=== PATIENT | female | born 1955 | race Caucasian/White ===

== ENCOUNTER 2018-01-13 09:29 | Outpatient (CLI) | payer BC | END 2018-01-13 09:30 | disposition home or self-care (01) | LOC: BICMAMMO 09:29 | PROVIDERS: ATTEND Family Medicine | DX: Z13.820 Encounter for screening for osteoporosis (principal) | CPT/HCPCS: 77080 ==

== ENCOUNTER 2018-04-07 21:40 | Emergency (ER) | payer BC ==
[2018-04-07 22:17] LABS: #Lymphocytes 1.7 thou/uL (1.20-3.40); #Monocytes 0.6 thou/uL (0.11-0.59); #Neutrophils 4.3 thou/uL (1.40-6.50); %Basophils 0.6 % (0.0-1.0); %Eosinophils 0.5 % (0.0-10.0); %Lymphocytes 25.2 % (21.0-51.0); %Neutrophils 64.6 % (42.0-75.0); Hemoglobin 14.2 g/dL (12.0-16.0); Mean Corpuscular HGB CONC 35.5 g/dL (32.0-36.0); Mean Corpuscular Hemoglobin 33.2 pg (27.0-31.0); Mean Corpuscular Volume 93.4 fL (78.0-98.0); Mean Platelet Volume 7.9 fL (7.4-10.4); Platelet Count 162 thou/uL (130-400); RBC Distribution Width 10.8 % (11.5-14.5); Red Blood Cell (RBC) Count 4.29 mill/uL (4.20-5.40); White Blood Cell (WBC) Count 6.6 thou/uL (4.8-10.8)
--- NOTE | 2018-04-07 22:35 | RAD ---
FRONTAL VIEW CHEST: 04/07/18 INDICATION: Vomiting, nausea. No prior comparison. FINDINGS: Lungs are clear of consolidation. There is no effusion or pneumothorax. Cardiac silhouette is accentu ated by portable technique. There is osseous degenerative change. IMPRESSION: No focal consolidation. Focal prominence at the right hilum may relate to en face vasculature. This may be further assessed w ith followup two view chest radiograph series. POS: [facility]
[2018-04-07 22:37] LABS: ALT (SGPT) 21 U/L (8-55); AST (SGOT) 17 U/L (5-34); Albumin 4.4 g/dL (3.4-4.8); Alkaline Phosphatase 52 U/L (40-150); Anion Gap 19 mmol/L (10-20); BUN (Urea Nitrogen) 26 mg/dL (9.8-20.1); Bilirubin, Total 0.6 mg/dL (0.2-1.2); CK (CPK) 176 U/L (29-168); Calc. Creatinine Clearance 0 mL/min (70-130); Calcium 9.8 mg/dL (7.8-10.44); Carbon Dioxide 21 mmol/L (23-31); Chloride 103 mmol/L (98-107); Estimated GFR-MDRD 56; Globulin 2.5 g/dL (2.4-3.5); Glucose 167 mg/dL (80-115); Potassium 3.6 mmol/L (3.5-5.1); Protein, Total 6.9 g/dL (6.0-8.3); Sodium 139 mmol/L (136-145)
[2018-04-07 22:41] LABS: CKMB 3.1 ng/mL (0-6.6); Troponin I Less than 0.010 ng/mL (< 0.028)
[2018-04-07 23:00] LABS: Bilirubin Negative (Negative); Blood, Urine Negative (Negative); Clarity CLEAR (Clear); Glucose, Urine (Dipstick) Negative (Negative); Leukocyte Small (Negative); Nitrite Negative (Negative); Protein, Urine (Dipstick) Negative (Neg-Trace); Specific Gravity, Urine 1.009 (1.002-1.036); Urobilinogen 0.2 mg/dL (0.2-1.0)
[2018-04-07 23:02] LABS: Bacteria/HPF None Seen HPF (None Seen); Hyaline Casts/LPF 0-3 HYALINE CAST LPF (0-3 Hyaline); RBC/HPF 0-3 HPF (0-3); Squamous Epithelial 0-3 HPF (0-3)
[2018-04-07] MEDS ORDERED: Ketorolac Tromethamine 30 MG/ML VIAL ONE (23:38)
== END 2018-04-08 00:59 | disposition home or self-care (01) ==
LOC: ERS 21:40
DX: R11.2 Nausea with vomiting, unspecified (principal); E03.9 Hypothyroidism, unspecified; I10 Essential (primary) hypertension; R42 Dizziness and giddiness; R25.2 Cramp and spasm; Z79.899 Other long term (current) drug therapy
CPT/HCPCS: 36415; 71045; 80053; 81003; 81015; 82550; 82553; 83690; 84484; 85025; 93005; 94760; 96361; 96374; A4353; J1885

== ENCOUNTER 2018-11-10 15:40 | Outpatient (CLI) | payer BC ==
--- NOTE | 2018-11-11 09:14 | MRI ---
MRI BRAIN WITH AND WITHOUT IV CONTRAST: Date: 11/10/18 HISTORY: Syncope and collapse. FINDINGS: No restricted diffusion is seen. No evidence of infarct, hemorrhage, mass, midline shift, or abnormal extra-axial fluid collections are noted. No abnormal postcontrast enhancement is seen. The ventricul ar size is appropriate and the basilar cisterns are patent. No significant white matter changes are i dentified. The visualized paranasal sinuses and mastoid air cells are well aerated. IMPRESSION: Normal exam. POS: C
== END 2018-11-10 15:41 | disposition home or self-care (01) ==
LOC: SCSMRI 15:40
PROVIDERS: ATTEND Psychiatry & Neurology Neurology
DX: R55 Syncope and collapse (principal)
CPT/HCPCS: 70553; 82565

== ENCOUNTER 2019-02-18 13:19 | Outpatient (CLI) | payer MEDICARE, BC ==
[2019-02-18 14:17] LABS: Hemoglobin 13.9 g/dL (12.0-16.0); Mean Corpuscular HGB CONC 34.2 g/dL (32.0-36.0); Mean Corpuscular Hemoglobin 31.7 pg (27.0-31.0); Mean Corpuscular Volume 92.8 fL (78.0-98.0); Mean Platelet Volume 8.9 fL (7.4-10.4); Platelet Count 176 thou/uL (130-400); Red Blood Cell (RBC) Count 4.38 mill/uL (4.20-5.40)
[2019-02-18 14:24] LABS: PTT 23.9 SEC (22.9-36.1); Prothrombin Time 12.8 SEC (12.0-14.7)
[2019-02-18 14:37] LABS: Anion Gap 15 mmol/L (10-20); BUN (Urea Nitrogen) 19 mg/dL (9.8-20.1); Calc. Creatinine Clearance 0 mL/min (70-130); Calcium 9.2 mg/dL (7.8-10.44); Carbon Dioxide 25 mmol/L (23-31); Chloride 103 mmol/L (98-107); Estimated GFR-MDRD 63; Glucose 142 mg/dL (80-115); Potassium 4.8 mmol/L (3.5-5.1); Sodium 138 mmol/L (136-145)
== END 2019-02-18 13:20 | disposition home or self-care (01) ==
LOC: LABBT 13:19
PROVIDERS: ATTEND Internal Medicine Cardiovascular Disease
DX: Z01.818 Encounter for other preprocedural examination (principal); R55 Syncope and collapse
CPT/HCPCS: 80048; 85027; 85610; 85730; 93005; 93010

== ENCOUNTER 2019-02-21 06:01 | Day surgery (SDC) | payer MEDICARE, BC ==
[2019-02-18 09:29] VITALS: BMI 32.2
[2019-02-21] MEDS ORDERED: Lidocaine 1% (PF) 30 ML VIAL ONE (06:49)
[2019-02-21] MEDS ORDERED: Midazolam HCl 2 mg/2 ml Vial ONE (07:25)
[2019-02-21] MEDS ORDERED: Propofol 500 MG/50 ML VIAL ONE (07:47)
[2019-02-21] MEDS ORDERED: Isoproterenol 0.2 MG/1 ML AMP ONE (08:37)
[2019-02-21] MEDS ORDERED: PROPOFOL 20 ML ONE ×2 (08:51→08:54)
[2019-02-21] MEDS ORDERED: Lidocaine 1% w/Epinephrine 1:100K 20 ML VIAL ONE (09:08)
[2019-02-21] MEDS ORDERED: Fentanyl 100 MCG/2 ML VIAL ONE (09:36)
--- NOTE | 2019-02-21 13:08 | OP ---
DATE OF PROCEDURE: 02/21/2019 PROCEDURE PERFORMED: Electrophysiology study. REASON FOR PROCEDURE: Ms. Briggs is a 63-year-old woman with history of syncopal spell and wide-complex tachycardia on the monitor for up to 7 beats. She has otherwise normal cardiac finding with LVEF 55% on echo and no ischemia on the stress test. She is here for EP study to evaluate the inducible arrhythmias. DESCRIPTION OF PROCEDURE: The patient received propofol by Anesthesia specialist. The right femoral venous area was prepped, draped, and anesthetized using subcutaneous lidocaine and ultrasound guidance. A right femoral vein was cannulated, and a 6-Czech short sheath was introduced, through which an octapolar catheter was advanced to the right atrium, right ventricle, His bundle, and CS location. Pacing mapping and recording were performed in each location. The baseline rhythm was sinus rhythm with cycle length of 950 milliseconds, DC 144, QRS 69, QT 404, AH 108, HV 46 milliseconds. Sinus node recovery time was measured to be 1329 milliseconds, corrected 330 milliseconds. AV Wenckebach cycle length was 340 milliseconds. No VA conduction at baseline, but improving to 460 milliseconds with Isuprel later. AV ben ERP was 600/240 milliseconds. No definite dual AV ben physiology or echo beats were observed. Ventricular access to my testing was performed with [address] train with up to 3 ventricular extrastimuli, which were gradually decremented to the refractory period. With this, this was also repeated in different locations and on and off Isuprel as well. Nonsustained ventricular tachycardia was seen only. During burst atrial pacing and extra stimuli testing, we were able to observe left bundle aberration, but no evidence of accessory pathway was clearly visualized. On Isuprel, there was an easily inducible and sustained atrial tachycardia was seen 348 milliseconds. It had proximal to distal CS activation could represent a right atrial tachycardia versus right pulmonary venous tachycardia in origin. The episodes were always pace-terminable. With ventricular overdrive pacing, VA -AV response was noted improving atrial tachycardia in origin. Also nonsustained atrial flutter was also seen, cannot rule out isthmus dependency, but it was not sustained after further study. No atrial fibrillation was seen. At the end of the case, the cardiac silhouette did not change. The patient tolerated the procedure well. No complications noted. CONCLUSION: 1. No inducible sustained ventricular arrhythmias. 2. Inducible atrial tachycardia at cycle was 348 milliseconds, on Isuprel only. 3. Tendency for left bundle aberration. 4. Normal sinus ben and AV ben function otherwise. PLAN: At this point, place loop recorder if clinical atrial tachycardia is seen. Consider further antiarrhythmic versus ablation therapy. Job ID: [id number] [facility]
--- NOTE | 2019-02-21 13:18 | OP ---
DATE OF PROCEDURE: 02/21/2019 PROCEDURE PERFORMED: Loop recorder implant. REASON FOR PROCEDURE: Ms. Briggs is a 63-year-old woman, history of syncopal spell, nonsustained wide-complex tachycardia. EP study demonstrated no ventricular tachycardia, but atrial tachycardia at 354 milliseconds cycle length. She is here for loop recorder implant, hence history of syncope and monitoring further atrial arrhythmias. DESCRIPTION OF PROCEDURE: The patient received deep sedation anesthesia specialist as part of the EP study. Left precordial area was prepped, draped, and anesthetized using subcutaneous lidocaine and in the fourth intercostal space, the [employer] LINQ insertion tool kit, the Reveal LINQ monitor was implanted, model #LNQ11, serial #[id number]. Wound was closed with Dermabond and Steri-Strips. No complications noted. CONCLUSION: Successful loop recorder implant. Job ID: [id number]
[2019-02-21] MEDS ORDERED: PROPOFOL 200 MG/20 ML VIAL ONE (16:02)
== END 2019-02-21 13:56 | disposition home or self-care (01) ==
LOC: CCL 06:01
PROVIDERS: ATTEND Internal Medicine Cardiovascular Disease
PROC: 4A023FZ Measurement of Cardiac Rhythm, Percutaneous Approach (ICD-10-PCS; principal; 2019-02-21)
PROC: 0JH632Z Insertion of Monitoring Device into Chest Subcutaneous Tissue and Fascia, Percutaneous Approach (ICD-10-PCS; 2019-02-21)
PROC: 4A0234Z Measurement of Cardiac Electrical Activity, Percutaneous Approach (ICD-10-PCS; 2019-02-21)
PROC: 02K83ZZ Map Conduction Mechanism, Percutaneous Approach (ICD-10-PCS; 2019-02-21)
DX: I47.1 Supraventricular tachycardia (principal); I48.92 Unspecified atrial flutter; Z79.899 Other long term (current) drug therapy
CPT/HCPCS: 33285; 76942; 93620; 93623; C1764; C1769; J1644; J2001; J2250; J2704; J3010

== ENCOUNTER 2019-03-11 14:50 | Outpatient (CLI) | payer MEDICARE, BC ==
--- NOTE | 2019-03-21 16:26 | MMO ---
Bilateral MAMMO Bilat Screen [facility]ISLIN[facility]. CLINICAL HISTORY: Patient is 63 years old and is seen for screening. The patient has the following family history of breast cancer: maternal grandmother, malignant (generic). The patient has no personal history of cancer. The patient has a history of right Stereotatic Biopsy in 2010 - benign. VIEWS: The views performed were: bilateral craniocaudal with tomosynthesis and bilateral mediolateral oblique with tomosynthesis. FILMS COMPARED: The present examination has been compared to prior imaging studies performed at [facility] on 11/08/2015, 11/12/2016, 12/09/2016 and 12/03/2017. MAMMOGRAM FINDINGS: There are scattered fibroglandular densities. Benign calcifications are noted bilaterally. Recording device medial left breast. There are no suspicious masses, suspicious calcifications, or new areas of architectural distortion. IMPRESSION: THERE IS NO MAMMOGRAPHIC EVIDENCE OF MALIGNANCY. A ROUTINE FOLLOW-UP MAMMOGRAM IN 1 YEAR IS RECOMMENDED. THE RESULTS OF THIS EXAM WERE SENT TO THE PATIENT. ACR BI-RADS Category 2 - Benign finding MAMMOGRAPHY NOTE: 1. A negative mammogram report should not delay a biopsy if a dominant of clinically suspicious mass is present. 2. Approximately 10% to 15% of breast cancers are not detected by mammography. 3. Adenosis and dense breasts may obscure an underlying neoplasm. Reported by: Angie WHITTINGTON Electonically Signed: [id number]
== END 2019-03-11 14:51 | disposition home or self-care (01) ==
LOC: BICMAMMO 14:50
PROVIDERS: ATTEND Family Medicine
DX: Z12.31 Encounter for screening mammogram for malignant neoplasm of breast (principal); Z80.3 Family history of malignant neoplasm of breast; Z91.89 Other specified personal risk factors, not elsewhere classified
CPT/HCPCS: 77063; 77067

== ENCOUNTER 2019-05-24 15:28 | Inpatient (IN) | payer MEDICARE, BC ==
[2019-05-24 16:13] LABS: #Eosinphils 0.1 thou/uL (0.0-0.7); #Monocytes 0.8 thou/uL (0.11-0.59); #Neutrophils 4.1 thou/uL (1.40-6.50); %Basophils 0.3 % (0.0-1.0); %Eosinophils 1.2 % (0.0-10.0); %Lymphocytes 28.6 % (21.0-51.0); %Monocytes 10.9 % (0.0-10.0); %Neutrophils 59.1 % (42.0-75.0); Hemoglobin 14.1 g/dL (12.0-16.0); Mean Corpuscular HGB CONC 34.2 g/dL (32.0-36.0); Mean Corpuscular Hemoglobin 31.7 pg (27.0-31.0); Mean Corpuscular Volume 92.7 fL (78.0-98.0); Mean Platelet Volume 8.6 fL (7.4-10.4); Platelet Count 168 thou/uL (130-400); RBC Distribution Width 11.1 % (11.5-14.5); Red Blood Cell (RBC) Count 4.46 mill/uL (4.20-5.40); White Blood Cell (WBC) Count 6.9 thou/uL (4.8-10.8)
--- NOTE | 2019-05-24 16:33 | RAD ---
EXAM: Portable chest PROVIDED CLINICAL HISTORY: Tachycardia COMPARISON: 04/07/2018 FINDINGS: Cardiac and mediastinal silhouette is within normal limits. No focal consolidation, pleural fluid or pneumothorax evident. Left subclavian cardiac pacing device is noted, the lead tips of which appear abnormally positioned overlying the expected SVC and cavoatrial junction regions. IMPRESSION: Cardiac pacing device with lead tips as described above. Cardiology consultation is recommended.
[2019-05-24 16:38] LABS: ALT (SGPT) 30 U/L (8-55); AST (SGOT) 24 U/L (5-34); Albumin 4.3 g/dL (3.4-4.8); Alkaline Phosphatase 75 U/L (40-110); Anion Gap 14 mmol/L (10-20); BUN (Urea Nitrogen) 18 mg/dL (9.8-20.1); Bilirubin, Total 0.6 mg/dL (0.2-1.2); Calc. Creatinine Clearance 0 mL/min (70-130); Calcium 9.3 mg/dL (7.8-10.44); Carbon Dioxide 23 mmol/L (23-31); Chloride 107 mmol/L (98-107); Estimated GFR-MDRD 64; Globulin 2.4 g/dL (2.4-3.5); Glucose 93 mg/dL (80-115); Potassium 3.9 mmol/L (3.5-5.1); Protein, Total 6.7 g/dL (6.0-8.3); Sodium 140 mmol/L (136-145)
--- NOTE | 2019-05-24 18:15 | PDOC.FPRHP ---
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 Patient reports that she was standing up today when she noticed that her heard started having palpitations. She reports that both her colleague at work and her were able to see the palpitations through her chest wall. She reports that they would last 4-5 beats at a time, and then stop. She denies chest pain, though she reported of some right arm tingling this afternoon that has since ceased. Otherwise denies sob, nausea, vomiting. Endorses a chronic dry cough. Dr. Moulton was consulted in the ED, as Dr. Sharma is oot, and he recommended admitting the patient with plans to alter the pacemaker lead placement tomorrow. - Allergies/Adverse Reactions Allergies Allergy/AdvReac Type Severity Reaction Status Date / Time No Known Allergies Allergy Verified 05/24/19 22:25 - Home Medications Medication Instructions Recorded Confirmed Type Atorvastatin Calcium 10 mg PO DAILY 02/18/19 05/24/19 History Calcium Carbonate [Calcium] 600 mg PO DAILY 02/18/19 05/24/19 History Irbesartan 150 mg PO DAILY 02/18/19 05/24/19 History Magnesium Oxide [Magnesium] 250 mg PO DAILY 02/18/19 05/24/19 History Metoprolol Succinate 25 mg PO DAILY 02/18/19 05/24/19 History Multivitamin [Multi-Vitamin Daily] 1 tablet PO DAILY 02/18/19 05/24/19 History [place]-3/DHA/EPA/Fish Oil [Fish Oil 1 each PO DAILY 02/18/19 05/24/19 History [place]-3 EC 1,200 mg] Ranitidine HCl 150 mg PO DAILY 02/18/19 05/24/19 History Vit B 12 1,000 mcg PO DAILY 02/18/19 05/24/19 History rOPINIRole HCl 3 mg PO QPM 02/18/19 05/24/19 History Gabapentin 1 cap PO DAILY 02/21/19 05/24/19 History Levothyroxine [Synthroid] 150 mcg PO DAILY 05/24/19 05/24/19 History - History PMHx: hypothyroidism, htn, pacemaker s/p bradycardia PSHx: , carpal tunnel repair, and pacemaker placement 04/08/19 FHx: non-contributory Social: negative - Review of Systems General: denies: fever/chills, weight/appetite/sleep changes Eyes: denies: eye pain, vision changes ENT: denies: nasal congestion, rhinorrhea Respiratory: reports: cough (chronic). denies: shortness of breath Cardiovascular: reports: palpitation. denies: chest pain Gastrointestinal: denies: nausea, vomiting, diarrhea Genitourinary: denies: incontinence, dysuria Skin: denies: rashes, lesions Musculoskeletal: denies: pain, tenderness Neurological: denies: numbness, syncope Psychological: denies: anxiety, depression - Vital signs BP: [135/63] HR: [67] RR: [16] Tmax: [98.6] Pox: [98]% on [RA] Wt: [85.28kg] - Physical Exam Constitutional: NAD, awake, alert and oriented HEENT: EOMI, grossly normal vision, grossly normal hearing Neck: supple, trachea midline Chest: no-tender to palpation, no lesions Heart: RRR, normal S1/S2, other (trace edema) Lungs: CTAB, no respiratory distress, good air movement Abdomen: soft, non-tender, bowel sounds present Musculoskeletal: normal structure, normal tone Neurological: no focal deficit, CN II-XII intact, normal sensation Skin: good turgor, capillary refill <2 seconds Heme/Lymphatic: no unusual bruising or bleeding, no purpura Psychiatric: normal mood and affect, good judgment and insight FMR H&P: Results - Labs Result Diagrams: 05/24/19 16:06 05/24/19 16:06 Lab results: WBC 6.9 thou/uL (4.8-10.8) 05/24/19 16:06 Hgb 14.1 g/dL (12.0-16.0) 05/24/19 16:06 Hct 41.4 % (36.0-47.0) 05/24/19 16:06 MCV 92.7 fL (78.0-98.0) 05/24/19 16:06 Plt Count 168 thou/uL (130-400) 05/24/19 16:06 Neutrophils % 59.1 % (42.0-75.0) 05/24/19 16:06 Sodium 140 mmol/L (136-145) 05/24/19 16:06 Potassium 3.9 mmol/L (3.5-5.1) 05/24/19 16:06 Chloride 107 mmol/L (98-107) 05/24/19 16:06 Carbon Dioxide 23 mmol/L (23-31) 05/24/19 16:06 BUN 18 mg/dL (9.8-20.1) 05/24/19 16:06 Creatinine 0.88 mg/dL (0.6-1.1) 05/24/19 16:06 Glucose 93 mg/dL (80-115) 05/24/19 16:06 Calcium 9.3 mg/dL (7.8-10.44) 05/24/19 16:06 Total Bilirubin 0.6 mg/dL (0.2-1.2) 05/24/19 16:06 AST 24 U/L (5-34) 05/24/19 16:06 ALT 30 U/L (8-55) 05/24/19 16:06 Alkaline Phosphatase 75 U/L (40-110) 05/24/19 16:06 Serum Total Protein 6.7 g/dL (6.0-8.3) 05/24/19 16:06 Albumin 4.3 g/dL (3.4-4.8) 05/24/19 16:06 - EKG Interpretation EKG: NSR - Radiology Interpretation Chest x-ray Status: report reviewed by me (CXR: l subclavian cardiac pacing device, lead tips abnormally positioned overlying the expected SVC and cavoatrial junction regions) FMR H&P: A/P - Problem List (1) HTN (hypertension) Current Visit: Yes Status: Chronic Code(s): I10 - ESSENTIAL (PRIMARY) HYPERTENSION (2) Hypothyroidism Current Visit: Yes Status: Chronic Code(s): E03.9 - HYPOTHYROIDISM, UNSPECIFIED (3) Pacemaker displacement Current Visit: Yes Status: Acute Code(s): T82.128A - DISPLACEMENT OF OTHER CARDIAC ELECTRONIC DEVICE, INIT ENCNTR - Plan Patient is a 63F with PMHx of hypothyroidism, HTN, admitted for pacemaker displacement #Pacemaker Displacement -Dr. Moulton consulted in the ED, plans to fix pacemaker lead displacement tomorrow -NPO -No blood thinner medications -on telemetry -troponin neg -patient currently denying chest pain, will continue to monitor #HTN -continue home meds #Hypothyroidism -continue home meds DVT PPX: SCDs Diet: Npo Code: Full Dispo: inpatient telemetry, plans of repairing pacemaker tomorrow FMR H&P: Upper Level - Pertinent history 63 yo F her with complaint of visual chest pounding. She states that she was at work today and a coworker noted that her chest was pounding. Patient was unaware and did not feel the pounding. She denies CP, SOB, palpitations, diaphoresis, n/v, or peripheral weakness/numbness. In the ED a CXR found pacer wires that were out of place. Dr Moulton was consulted from the ED who asked that the pt be admitted for replacement of wires. PMHx HTN Hypothyroid Symptomatic Bradycardia s/p pacemaker placement Restless leg syndrome Osteoporosis Surgical hx Carpal tunnel release C section Pacer placement 03/2019 Denies smoking, etoh, or drugs - Pertinent findings See internal salesperson note for full ROS, PE, vitals, and labs ROS General denies fever or chills CV Denies CP, palpitation, or chronic peripheral edema Resp complains of SOB. Denies cough GI denies n/v/d/c or abdominal pain denies increased frequency or dysuria Neuro denies numbness or weakness PE General A&O x4, NAD HEENT NCAT CV RRR, no murmur Resp CTA, no respiratory distress Abd non tender, no distension, normal BS Extremities no edema, equal pedal pulses Neuro no focal deficits, CN II-XII intact - Plan Date/Time: 05/24/191814 Wayne Rodriguez DO, have evaluated this patient and agree with findings/plan as outlined by internal salesperson resident. Pertinent changes/additions are listed here. 1.Pacemaker malfunction -Plan for surgery in the am, Dr Moulton has seen patient -Admit to tele, NPO at midnight -Trops negative, EKG shows paced rhythm without ST or T wave changes, low concern for ACS 2.HTN -Home meds 3.Hypothyroid -Home meds PPx SCD Diet HH, NPO at midnight Code Full
[2019-05-24] MEDS ORDERED: Acetaminophen 325 MG TAB PO PRN (19:13)
[2019-05-24 22:34] VITALS: BMI 33.3
[2019-05-25] MEDS: Levothyroxine 150 MCG TAB PO SCH (05:35)
--- NOTE | 2019-05-25 06:57 | PDOC.FM ---
- Subjective Subjective: Breanne Lopez called overnight for bradycardia as low as 20's overnight around 0300 when she got up to go to the bathroom. She did feel symptomatic. SBP 80's at this time. Self resolved. This morning she feeling well however she did not sleep well due to being transported to different rooms. Is NPO for pacemaker adjustment today. Denies palpitations, chest pain. - Objective MAR Reviewed: Yes Vital Signs & Weight: Vital Signs (12 hours) Temp Pulse Pulse Pulse Pulse Resp BP 05/25/19 04:42 98.5 F 05/25/19 04:01 05/25/19 03:40 66 15 05/25/19 03:12 49 L 60 57 L 81/43 L 05/24/19 20:40 97.8 F 60 16 BP BP BP BP BP Pulse Ox Pulse Ox 05/25/19 04:42 05/25/19 04:01 95 05/25/19 03:40 119/59 L 05/25/19 03:12 89/50 L 99/57 L 105/51 L 94 L 05/24/19 20:40 131/71 97 Pulse Ox Pulse Ox 05/25/19 04:42 05/25/19 04:01 05/25/19 03:40 05/25/19 03:12 95 97 05/24/19 20:40 Weight Weight 83.234 kg Most Recent Monitor Data Heart Rate from ECG 58 NIBP 121/60 NIBP BP-Mean 80 Respiration from ECG 17 SpO2 96 Result Diagrams: 05/24/19 16:06 05/24/19 16:06 Phys Exam - Physical Examination Constitutional: NAD HEENT: moist MMs Neck: supple Respiratory: no wheezing, clear to auscultation bilateral Cardiovascular: RRR Gastrointestinal: soft, non-tender, positive bowel sounds Musculoskeletal: no edema, pulses present Neurological: moves all 4 limbs Psychiatric: normal affect, A&O x 3 Skin: normal turgor Dx/Plan - Plan Plan: Pacemaker malfunction - Plan for surgery this am with Dr Moulton, currently NPO - Trops negative, EKG shows paced rhythm without ST or T wave changes, low concern for ACS HTN - Continue home meds Hypothyroid - Continue home meds - TSH low, consider lowering synthroid dose Code Status: Full DVT ppx: SCDs
[2019-05-25] MEDS: Magnesium Oxide 250 MG TAB PO SCH (09:00)
[2019-05-25] MEDS: Cyanocobalamin (Vitamin B-12) 1,000 MCG TAB PO SCH (09:00)
[2019-05-25] MEDS: Calcium Carbonate 600 MG TAB PO SCH (09:00)
[2019-05-25] MEDS: Atorvastatin Calcium 10 MG TAB PO SCH (09:00)
[2019-05-25] MEDS ORDERED: FLU VACC TS2019-20(65YR UP)/PF 180 MCG/0.5 ML SYRINGE IM ONE (09:00)
[2019-05-25] MEDS: Famotidine 20 MG TAB PO SCH ×2 (09:00→19:08)
[2019-05-25] MEDS: Multivit, Therapeutic 1 TAB PO SCH (09:00)
[2019-05-25] MEDS: Fish Oil 1,000 MG CAP PO SCH (09:00)
[2019-05-25] MEDS: Losartan 25 MG TAB PO SCH (09:00)
[2019-05-25] MEDS: Gabapentin 300 MG CAP PO SCH ×2 (09:00→19:09)
--- NOTE | 2019-05-25 09:46 | PRG ---
DATE OF SERVICE: 05/25/2019 SUBJECTIVE: Ms. Briggs is a very pleasant 63-year-old lady, who had a pacemaker placed several months ago for symptomatic bradycardia. 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 She has been admitted for readjustment with the behavioral health case manager. This morning, she is completely awake and alert. Her vital signs are stable with a blood pressure of 126/69 and her pulse rate is 61, regular and normal sinus rhythm. LABORATORY DATA: Her troponins are low at 0.020. Electrolytes are normal with potassium of 3.9 and chloride of 107. Her glucose is 93. PLAN: I believe Cardiology is going to readjust her pacemaker sometime later today. Job ID: [id number]
[2019-05-25] MEDS ORDERED: Lidocaine 1% (PF) 30 ML VIAL ONE (10:27)
[2019-05-25] MEDS ORDERED: Fentanyl 100 MCG/2 ML VIAL ONE ×2 (11:19→11:55)
[2019-05-25] MEDS ORDERED: Midazolam HCl 2 mg/2 ml Vial ONE (11:19)
--- NOTE | 2019-05-25 13:04 | PDOC.EVN ---
Event Note - Event Note Event Note: S/p successful lead revision. May DC home from EP perspective after bedrest/ recovery is complete if cleared by medicine. Please send home on Keflex (script in chart front). Will need 2 week wound check with KAREN friend
--- NOTE | 2019-05-25 15:30 | CON ---
DATE OF CONSULTATION: 05/24/2019 REASON FOR CONSULTATION: Pacemaker lead malpositioning. HISTORY OF PRESENT ILLNESS: Ms. Briggs is a pleasant 63-year-old woman with a history of syncope and nonsustained ventricular tachycardia by a Holter monitor in August 2018. She underwent an electrophysiology study given her symptoms and multiple episodes of syncope on 02/21/[address] Moulton to evaluate for ventricular arrhythmias. She was found to be not inducible for ventricular arrhythmias, but was found to be inducible for an atrial tachycardia cycle length 348 milliseconds. She had a tendency for left bundle aberration as well. At that time, she had a loop recorder implanted. She continued to have episodes of syncope and then was found to have a tendency for sinus bradycardia with heart rate in the 30s. At that time, it was decided to move forward with a pacemaker, which was implanted by Dr. Sharma. She presented to the emergency room at [place] for multiple episodes of palpitations and weakness. A chest x-ray was performed and it was found that the wires from pacemaker were retracted and malpositioned and nonfunctioning, prompting the EP consult. Ms. Briggs is currently feeling well. She denies any current heart racing or palpitations. She has mentioned she recently had dizziness and near syncopal episodes with right arm tingling as well. She denies nausea, vomiting, diarrhea, or shortness of breath. Occasionally has a dry cough. REVIEW OF SYSTEMS: A 12-point review of systems is conducted, is negative except that listed above in HPI. PAST MEDICAL HISTORY: 1. Syncope and collapse. 2. Wide-complex tachycardia on Holter monitor and nonsustained ventricular tachycardia. 3. Electrophysiology study on 02/21/2019, not inducible for ventricular arrhythmias, but found inducible for atrial tachycardia while on Isuprel. 4. Sinus node dysfunction. 5. Dual-chamber pacemaker implant. 6. Structurally normal heart on stress test performed on 11/10/2018 with normal LV function and no ischemic scar. EF 52% by echo on 08/25/2018. 7. Hypothyroidism. ALLERGIES: NO KNOWN DRUG ALLERGIES. HOME MEDICATIONS: Include; 1. Atorvastatin calcium 10 mg daily. 2. Calcium supplement daily. 3. Irbesartan 150 mg daily. 4. Magnesium oxide 250 mg daily. 5. Metoprolol succinate 25 mg daily. 6. Multivitamin daily. 7. Fish oil daily. 8. Ranitidine 150 mg p.o. daily. 9. Vitamin B12 of 1000 mcg daily. 10. Ropinirole 3 mg q.p.m. 11. Gabapentin 1 capsule daily. 12. Synthroid 150 mcg daily. FAMILY HISTORY: Noncontributory. SOCIAL HISTORY: Negative for alcohol, tobacco, or illicit drug use. OBJECTIVE: VITAL SIGNS: Blood pressure 135/63, heart rate 67, respirations 16, and oxygen is 98% on room air. Weight 85 kg. T-max 98.6. GENERAL: The patient is alert and oriented. Speech is clear. Affect is appropriate. She is in no apparent distress at the time of exam. NECK: Supple without jugular venous distention. LUNGS: Clear to auscultation without wheezes, crackles, or rhonchi. Respirations have been even and nonlabored. HEART: Rate is regularly regular with crisp S1 and S2. Pacemaker is seated at the left infraclavicular fossa. Placement is suspicious for malpositioning. ABDOMEN: Soft and nontender without palpable masses. Positive bowel sounds throughout. NEUROLOGIC: Grossly intact and nonfocal. Gait was not assessed. LABORATORY DATA: EKG shows sinus rhythm and sinus bradycardia. Chest x-ray, impression, suggest abnormally positioned pacemaker wires, I personally reviewed and wires are obviously retracted. IMPRESSION: 1. Palpitations, near syncope. 2. Dual-chamber pacemaker with retracted wires in need of a lead revision. 3. Hypertension. 4. Hypothyroidism. RECOMMENDATIONS AND PLAN: I discussed with Ms. Briggs about pacemaker lead revision. We discussed risks, benefits, and alternatives. The patient is in full agreement to move forward with the lead revision tomorrow. I will keep her n.p.o. after midnight and obtain inform consent. She will likely be able to discharge home from an Electrophysiology standpoint following her lead revision on antibiotics, which I will prescribe in the chart. Thank you for allowing me to participate in the care of this patient. Job ID: [id number]
[2019-05-25] MEDS ORDERED: Lorazepam 2 MG/ML VIAL ONE (16:24)
[2019-05-25] MEDS ORDERED: Iopamidol 370 76% 50 ML VIAL FS ONE (20:20)
[2019-05-25] MEDS ORDERED: Ondansetron ODT 4 MG TAB PO PRN (20:47)
[2019-05-25] MEDS ORDERED: rOPINIRole HCl 1 MG TAB PO SCH (21:00)
--- NOTE | 2019-05-25 22:10 | CON ---
DATE OF CONSULTATION: 05/25/2019 HISTORY OF PRESENT ILLNESS: Marleni Briggs presents with complaints of feeling palpitations chest pumping. Apparently, she felt that her pacemaker is malfunctioning. She has had bradycardia in the 30s via her loop recorder. She had her pacemaker placed in March. She is here for re-evaluation of that. PAST MEDICAL HISTORY: Remarkable for 1. Hypothyroidism. 2. Hypertension. 3. Pacemaker in March. 4. History of . 5. History of carpal tunnel surgery in 03/2019. FAMILY HISTORY: Negative for lung disease in early age. SOCIAL HISTORY: She is nonsmoker, nondrinker. ALLERGIES: NO DRUG ALLERGIES REPORTED. REVIEW OF SYSTEMS: Ten-point review of systems completed, otherwise negative. PHYSICAL EXAMINATION: GENERAL: Very pleasant, cooperative. VITAL SIGNS: Heart rate 67, blood pressure 141/73, respiratory rate is __ 98. HEENT: Pupils are equal. Sclerae are anicteric. NECK: Supple. No lymphadenopathy. LUNGS: Clear. HEART: Regular rhythm. S1 and S2 are normal. ABDOMEN: Soft and nontender. EXTREMITIES: Without clubbing, cyanosis, or edema. NEURO: Nonfocal. Heart rate was in the 60s when I saw her this morning. IMPRESSION: Bradycardia secondary to either pacemaker lead malfunction or pacemaker malfunction. EP is currently on a schedule to evaluate her. It is felt that her leads may have become disconnected. I will be happy to follow the other physicians caring for her. TIME SPENT WITH PATIENT: This is a 70-minute consult, with greater than 50% of the time was spent on the unit coordinating care. Job ID: [id number] [facility]
[2019-05-26 04:34] VITALS: BP 109/83
--- NOTE | 2019-05-26 06:15 | PDOC.FM ---
- Subjective Subjective: Overnight experienced nausea, reports this happens at home as well. Nausea resolved with Zofran. Slept well. Tolerated procedure well. Reports no events of dizziness, syncope or chest pain. - Objective MAR Reviewed: Yes Vital Signs & Weight: Vital Signs (12 hours) Temp Pulse Resp BP Pulse Ox 05/26/19 04:00 98.3 F 77 12 109/83 96 05/26/19 00:00 98.2 F 65 14 120/68 96 05/25/19 19:57 94 L 05/25/19 19:19 99.4 F Weight Weight 83.234 kg Most Recent Monitor Data Heart Rate from ECG 77 NIBP 109/83 NIBP BP-Mean 91 Respiration from ECG 11 SpO2 96 I&O: 05/24/19 05/25/19 05/26/19 06:59 06:59 06:59 Intake Total 700 Output Total 1250 Balance -550 Result Diagrams: 05/24/19 16:06 05/24/19 16:06 Phys Exam - Physical Examination Constitutional: NAD HEENT: moist MMs Neck: supple Respiratory: no wheezing, clear to auscultation bilateral Cardiovascular: RRR, no significant murmur Gastrointestinal: soft, non-tender, positive bowel sounds Musculoskeletal: no edema, pulses present Neurological: moves all 4 limbs Psychiatric: normal affect, A&O x 3 Skin: normal turgor Dx/Plan - Plan Plan: Pacemaker malfunction - Leads successful adjusted 05/25. Rx for Keflex in chart. - F/u for 2 wk wound check with [facility] Jose Enrique HTN - Continue home meds Hypothyroid - Continue home meds - TSH low, consider lowering synthroid dose. Will discuss with PCP Code Status: Full DVT ppx: SCDs PCP: [facility] (Dr Gibson)
[2019-05-26] MEDS: Levothyroxine 150 MCG TAB PO SCH (06:30)
[2019-05-26] MEDS: Gabapentin 300 MG CAP PO SCH (08:54)
[2019-05-26] MEDS: Losartan 25 MG TAB PO SCH (08:54)
[2019-05-26] MEDS: Fish Oil 1,000 MG CAP PO SCH (08:55)
[2019-05-26] MEDS: Multivit, Therapeutic 1 TAB PO SCH (08:56)
[2019-05-26] MEDS: Cyanocobalamin (Vitamin B-12) 1,000 MCG TAB PO SCH (08:56)
[2019-05-26] MEDS: Atorvastatin Calcium 10 MG TAB PO SCH (08:56)
[2019-05-26] MEDS: Magnesium Oxide 250 MG TAB PO SCH (08:57)
[2019-05-26] MEDS: Calcium Carbonate 600 MG TAB PO SCH (08:57)
[2019-05-26] MEDS: Famotidine 20 MG TAB PO SCH (08:57)
--- NOTE | 2019-05-26 10:27 | PRG ---
DATE OF SERVICE: 05/26/2019 Ms. Briggs had readjustment of her pacemaker wire yesterday. She is currently in normal sinus rhythm and in no distress, and anxious to go home. She will be discharged later today. Job ID: [id number]
--- NOTE | 2019-05-26 10:28 | PRG ---
DATE OF SERVICE: 05/26/2019 SUBJECTIVE: Marleni Briggs did well overnight. She has a pacemaker in. OBJECTIVE: VITAL SIGNS: She is afebrile. Oximetry is 96% on room air, heart rate 74, and blood pressure 131/72. LUNGS: Unchanged. HEART: Unchanged. ABDOMEN: Unchanged. IMPRESSION AND PLAN: Status post pacemaker malfunction, status post lead revision. She appears to be doing well. She is tentatively on the schedule for discharge. Job ID: [id number]
[2019-05-26 11:15] VITALS: TEMP 98.5
--- NOTE | 2019-05-26 15:29 | PDOC.CPN ---
- Subjective Date: 05/26/19 Time: 08:00 Interval history: feeling well after lead revision on 05/25. Some soreness to left shoulder that is positional. Eager to go home. No additional PM or cardiac related concerns. - Review of Systems General: denies: fever/chills, weight/appetite/sleep changes, night sweats, fatigue Respiratory: denies: cough, congestion, shortness of breath, exercise intolerance Cardiovascular: denies: chest pain, palpitation, edema, paroxysmal nocturnal dyspnea, orthopnea Gastrointestinal: denies: nausea, vomiting, diarrhea, constipation, abd pain, GI bleeding Musculoskeletal: denies: pain, tenderness, stiffness, swelling, arthritis/ arthralgias Neurological: denies: numbness, syncope, seizure, weakness - Objective Allergies/Adverse Reactions: Allergies Allergy/AdvReac Type Severity Reaction Status Date / Time No Known Allergies Allergy Verified 05/24/19 22:25 Vital Signs & Weight: Vital Signs Temp Pulse Resp BP Pulse Ox 05/26/19 11:14 98.5 F 05/26/19 07:35 96 05/26/19 07:24 98.0 F 05/26/19 04:00 98.3 F 77 12 109/83 96 Weight 183 lb 8 oz - Physical Exam General: alert & oriented x3, appears well, no apparent distress HEENT: mucus membranes moist, normocephaly Neck: supple neck, midline trachea, no JVD/HJR, no masses, no bruit, no lymphadenopathy, no thromegaly Cardiac: regular rate and rhythm Lungs: clear to auscultation, normal breath sounds, normal exam, no wheeze, rales, rhonchi Neuro: grossly intact Abdomen: unremarkable, active bowel sounds Skin: other (PPM incision is CDI. edges well approximated. NO drainage or signs of infection. Mild edema and bruising.) - Labs Result Diagrams: 05/24/19 16:06 05/24/19 16:06 Troponin/CKMB Troponin I 0.020 ng/mL (< 0.028) 05/24/19 16:06 - Assessment/Plan Assessment/Plan: 1. Sick sinus syndrome 2. Dual chamber pacemaker -s/p lead revision -will be checked this AM. OK to DC home if check is normal. - antibiotics x 7 days post implant, rx in chart.
--- NOTE | 2019-05-26 17:40 | DIS ---
DATE OF ADMISSION: 05/24/2019 DATE OF DISCHARGE: 05/26/2019 CONSULTS: 1. Electrophysiology. 2. Pulmonology. PROCEDURES: 1. Chest x-ray 05/24/2019. Left subclavian cardiac pacing device noted. The lead tips, which appear abnormally positioned overlying the expected SVC and cavoatrial junction region. 2. research lab assistant; lead revision on dual-chamber pacemaker. PRIMARY DIAGNOSIS: Pacemaker malfunction, status post revision. SECONDARY DIAGNOSES: 1. Hypertension. 2. Hypothyroidism. DISCHARGE MEDICATIONS: 1. Atorvastatin 10 mg daily. 2. Calcium carbonate 600 mg daily. 3. Gabapentin 300 mg daily. 4. Irbesartan 150 mg daily. 5. Synthroid 150 mcg daily. 6. Magnesium oxide 250 mg daily. 7. Metoprolol succinate 25 mg daily. 8. Multivitamin one tab daily. 9. Fish oil omega-3 EC 1200 mg daily. 10. Zofran 4 mg q.6 hours p.r.n. 11. Ranitidine 150 mg daily. 12. Ropinirole 3 mg at bedtime. 13. Vitamin B12 of 1000 mcg daily. DISCONTINUED MEDICATIONS: None. HISTORY OF PRESENT ILLNESS/HOSPITAL COURSE: Ms. Briggs is a 63-year-old female with past medical history of hypothyroidism, hypertension, and pacemaker placement, 04/08/2019, status post loop recorder, demonstrated episodes of bradycardia in the 30s, presented today after multiple episodes of palpitations and visualized chest palpitations. Dr. Moulton was consulted in the ED as her metal stamper, Dr. Sharma is out of town. She was taken for lead revision the next morning after being made n.p.o. at midnight. Her initial troponin was negative. Overnight, she did have a code green called due to symptomatic bradycardia in the 30s that self-resolved. Her other medical problems of hypertension and hypothyroidism are managed with home medications. It was noted that her TSH was low at 0.1087. Can consider lowering dose of Synthroid, but will defer this to patient's PCP. DISPOSITION: Stable. DISCHARGE INSTRUCTIONS: 1. Location: Home. 2. Diet: Regular. 3. Activity: No restrictions. 4. Followup: With [facility] (Dr. Gibson) within 3 to 7 days. Job ID: [id number]
--- NOTE | 2019-05-28 13:42 | EKG ---
Test Reason : Blood Pressure : / mmHG Vent. Rate : 066 BPM Atrial Rate : 067 BPM P-R Int : 126 ms QRS Dur : 066 ms QT Int : 388 ms P-R-T Axes : 073 004 025 degrees QTc Int : 406 ms Normal sinus rhythm Normal ECG Confirmed by CAREN GARCIA ([id number]), business editor JEANNINE CRESPO ([id number]) on 05/28/2019 1:41:22 PM Referred By: Confirmed By:CAREN GARCIA
== END 2019-05-26 13:29 | disposition home or self-care (01) | DRG 262 ==
LOC: ERS 15:28 → 2NO 17:41 → IMCU/EMU 05-25 03:30
PROVIDERS: ADMIT Family Medicine; ATTEND Family Medicine
PROC: 02PA3MZ Removal of Cardiac Lead from Heart, Percutaneous Approach (ICD-10-PCS; principal; 2019-05-25)
PROC: 02H63JZ Insertion of Pacemaker Lead into Right Atrium, Percutaneous Approach (ICD-10-PCS; 2019-05-25)
PROC: 02HK3JZ Insertion of Pacemaker Lead into Right Ventricle, Percutaneous Approach (ICD-10-PCS; 2019-05-25)
PROC: 3E02340 Introduction of Influenza Vaccine into Muscle, Percutaneous Approach (ICD-10-PCS; 2019-05-25)
DX: T82.120A Displacement of cardiac electrode, initial encounter (principal); E03.9 Hypothyroidism, unspecified; I10 Essential (primary) hypertension; G25.81 Restless legs syndrome; M81.0 Age-related osteoporosis without current pathological fracture; Y83.1 Surgical operation with implant of artificial internal device as the cause of abnormal reaction of the patient, or of later complication, without mention of misadventure at the time of the procedure; R00.1 Bradycardia, unspecified; I49.5 Sick sinus syndrome; Z23 Encounter for immunization; Z79.899 Other long term (current) drug therapy
CPT/HCPCS: 33285; 36415; 36416; 71045; 80053; 84443; 84484; 85025; 90471; 90662; 93005; 99152; 99153; C1898; G0008; J0690; J2001; J2060; J2250; J3010; J3490; Q0162; Q9967

== ENCOUNTER 2019-11-11 19:30 | Outpatient (CLI) | payer MEDICARE | END 2019-11-11 19:31 | disposition home or self-care (01) | LOC: SLEEPLAB 19:30 | PROVIDERS: ATTEND Family Medicine | DX: G47.33 Obstructive sleep apnea (adult) (pediatric) (principal); I10 Essential (primary) hypertension | CPT/HCPCS: 95811 ==

== ENCOUNTER 2020-03-13 07:56 | Outpatient (CLI) | payer MEDICARE ==
--- NOTE | 2020-03-13 08:25 | MMO ---
Bilateral MAMMO Bilat Screen [facility]. CLINICAL HISTORY: Patient is 64 years old and is seen for screening. The patient has the following family history of breast cancer: maternal grandmother, malignant (generic). The patient has no personal history of cancer. The patient has a history of right Stereotatic Biopsy in 2010 - benign. VIEWS: The views performed were: bilateral craniocaudal with tomosynthesis and bilateral mediolateral oblique with tomosynthesis. FILMS COMPARED: The present examination has been compared to prior imaging studies performed at [facility] on 03/11/2019, and at [facility] on 11/12/2016, 12/09/2016 and 12/03/2017. This study has been interpreted with the assistance of computer-aided detection. MAMMOGRAM FINDINGS: There are scattered fibroglandular densities. There are stable benign appearing calcifications seen in both breasts. A biopsy clip is seen in the right breast. There are no suspicious masses, suspicious calcifications, or new areas of architectural distortion. IMPRESSION: THERE IS NO MAMMOGRAPHIC EVIDENCE OF MALIGNANCY. A ROUTINE FOLLOW-UP MAMMOGRAM IN 1 YEAR IS RECOMMENDED. THE RESULTS OF THIS EXAM WERE SENT TO THE PATIENT. ACR BI-RADS Category 2 - Benign finding MAMMOGRAPHY NOTE: 1. A negative mammogram report should not delay a biopsy if a dominant of clinically suspicious mass is present. 2. Approximately 10% to 15% of breast cancers are not detected by mammography. 3. Adenosis and dense breasts may obscure an underlying neoplasm. Reported by: LALY BOWMAN MD Electonically Signed: [id number]
== END 2020-03-13 07:57 | disposition home or self-care (01) ==
LOC: BICMAMMO 07:56
PROVIDERS: ATTEND Family Medicine
DX: Z12.31 Encounter for screening mammogram for malignant neoplasm of breast (principal); Z80.3 Family history of malignant neoplasm of breast; Z91.89 Other specified personal risk factors, not elsewhere classified
CPT/HCPCS: 77063; 77067

== ENCOUNTER 2020-09-24 09:05 | Emergency (ER) | payer MEDICARE ==
[2020-09-24 09:46] LABS: Hemoglobin 12.8 g/dL (12.0-16.0); Mean Corpuscular HGB CONC 32.9 g/dL (32.0-36.0); Mean Corpuscular Hemoglobin 31.9 pg (27.0-31.0); Mean Platelet Volume 9.4 fL (7.4-10.4); Platelet Count 129 thou/uL (130-400); RBC Distribution Width 11.7 % (11.5-14.5)
--- NOTE | 2020-09-24 09:54 | RAD ---
EXAM: Single view of the chest HISTORY: Syncope COMPARISON: 1120 FINDINGS: Single view of the chest shows a normal sized cardiomediastinal silhouette. The pacemaker is unchanged in position. There is no evidence of consolidation, mass, or pleural effusion. No acute osseous abnormality. IMPRESSION: No evidence of acute cardiopulmonary disease
[2020-09-24 10:01] LABS: Band 3 % (5-11); Eosinophils 2 % (0-10); Lymphocytes 34 % (21-51); MDiff Complete? YES; Monocytes 18 % (0-10); Neutrophil 42 % (42-75); Platelet Morphology Comment Appears Decreased; RBC Morphology Normal; Reactive Lymphocytes 1 % (0-10)
[2020-09-24 10:04] LABS: ALT (SGPT) 64 U/L (8-55); AST (SGOT) 56 U/L (5-34); Albumin 3.5 g/dL (3.4-4.8); Alkaline Phosphatase 69 U/L (40-110); Anion Gap 12 mmol/L (10-20); BUN (Urea Nitrogen) 22 mg/dL (9.8-20.1); Bilirubin, Total 0.6 mg/dL (0.2-1.2); Calc. Creatinine Clearance 0 mL/min (70-130); Calcium 8.6 mg/dL (7.8-10.44); Carbon Dioxide 27 mmol/L (23-31); Chloride 106 mmol/L (98-107); Globulin 2.4 g/dL (2.4-3.5); Glucose 144 mg/dL (80-115); Potassium 4.2 mmol/L (3.5-5.1); Protein, Total 5.9 g/dL (5.8-8.1); Sodium 141 mmol/L (136-145)
== END 2020-09-24 11:39 | disposition home or self-care (01) ==
LOC: ERS 09:05
DX: R55 Syncope and collapse (principal); E03.9 Hypothyroidism, unspecified; I10 Essential (primary) hypertension; F32.9 Major depressive disorder, single episode, unspecified; Z79.899 Other long term (current) drug therapy
CPT/HCPCS: 36415; 71045; 80053; 84443; 84484; 85025; 93005

== ENCOUNTER 2021-03-15 07:42 | Outpatient (CLI) | payer MEDICARE | END 2021-03-15 07:43 | disposition home or self-care (01) | LOC: BICMAMMO 07:42 | PROVIDERS: ATTEND Family Medicine | DX: Z12.31 Encounter for screening mammogram for malignant neoplasm of breast (principal); Z80.3 Family history of malignant neoplasm of breast; Z91.89 Other specified personal risk factors, not elsewhere classified | CPT/HCPCS: 77063; 77067 ==

== ENCOUNTER 2022-03-07 14:24 | Inpatient (IN) | payer MEDICARE ==
[2022-03-07 15:31] LABS: #Eosinphils 0.1 thou/uL (0.0-0.7); #Lymphocytes 1.3 thou/uL (1.20-3.40); #Monocytes 0.6 thou/uL (0.11-0.59); #Neutrophils 5.1 thou/uL (1.40-6.50); %Basophils 0.6 % (0.0-1.0); %Eosinophils 1.1 % (0.0-10.0); %Lymphocytes 17.9 % (21.0-51.0); %Monocytes 8.7 % (0.0-10.0); %Neutrophils 71.8 % (42.0-75.0); Hemoglobin 15.9 g/dL (12.0-16.0); Mean Corpuscular HGB CONC 33.1 g/dL (32.0-36.0); Mean Corpuscular Hemoglobin 32.2 pg (27.0-31.0); Mean Corpuscular Volume 97.3 fL (78.0-98.0); Platelet Count 145 thou/uL (130-400); RBC Distribution Width 11.6 % (11.5-14.5); Red Blood Cell (RBC) Count 4.94 mill/uL (4.20-5.40); White Blood Cell (WBC) Count 7.2 thou/uL (4.8-10.8)
[2022-03-07 15:53] LABS: ALT (SGPT) 30 U/L (8-55); AST (SGOT) 29 U/L (5-34); Albumin 4.1 g/dL (3.4-4.8); Alkaline Phosphatase 67 U/L (40-110); Anion Gap 19 mmol/L (10-20); BUN (Urea Nitrogen) 13 mg/dL (9.8-20.1); Bilirubin, Total 0.6 mg/dL (0.2-1.2); Calc. Creatinine Clearance 0 mL/min (70-130); Calcium 9.8 mg/dL (7.8-10.44); Carbon Dioxide 20 mmol/L (23-31); Chloride 104 mmol/L (98-107); Estimated GFR 80; Glucose 117 mg/dL (80-115); Potassium 4.4 mmol/L (3.5-5.1); Protein, Total 7.1 g/dL (5.8-8.1); Sodium 139 mmol/L (136-145)
[2022-03-07] MEDS ORDERED: Meclizine HCl 25 MG TAB ONE (16:09)
[2022-03-07] MEDS ORDERED: Promethazine 25 MG TAB ONE (16:10)
[2022-03-07] MEDS ORDERED: Aspirin 325 MG TAB ONE (17:02)
[2022-03-07] MEDS ORDERED: Ondansetron PF 4 MG/2 ML Vial IVP PRN (19:33)
[2022-03-07] MEDS ORDERED: Ondansetron ODT 4 MG TAB PO PRN (19:33)
[2022-03-07] MEDS ORDERED: Gabapentin 300 MG CAP PO SCH (21:00)
[2022-03-07] MEDS ORDERED: rOPINIRole HCl 1 MG TAB PO SCH (21:00)
[2022-03-07] MEDS ORDERED: Dextrose 5% in Water 1,000 ML IV PRN (22:16)
[2022-03-07] MEDS ORDERED: Dextrose 50% Abboject 50 ML SYRINGE SLOW IVP PRN (22:16)
[2022-03-07 22:48] LABS: Hemoglobin A1c 6.9 % (4.0-6.0)
[2022-03-08 00:41] VITALS: BMI 34.7
[2022-03-08] MEDS: Levothyroxine Sodium 100 MCG TAB PO SCH (05:28)
[2022-03-08] MEDS ORDERED: Midazolam HCl 2 mg/2 ml Vial SLOW IVP SCH (07:45)
[2022-03-08] MEDS: Losartan 25 MG TAB PO SCH (08:46)
[2022-03-08] MEDS: Aspirin 81 mg Enteric Coated Tablet PO SCH (08:47)
[2022-03-08] MEDS: Multivit, Therapeutic 1 TAB PO SCH (08:47)
[2022-03-08] MEDS: Ezetimibe 10 MG TAB PO SCH (08:47)
[2022-03-08] MEDS: Magnesium Oxide 250 MG TAB PO SCH (08:47)
[2022-03-08] MEDS: Cyanocobalamin (Vitamin B-12) 1,000 MCG TAB PO SCH (08:47)
[2022-03-08] MEDS ORDERED: Meclizine HCl 12.5 MG TAB PO PRN (09:03)
[2022-03-08] MEDS: rOPINIRole HCl 2 MG TAB PO SCH (20:35)
[2022-03-08] MEDS: Atorvastatin Calcium 40 MG TAB PO SCH (20:37)
[2022-03-08] MEDS: Gabapentin 300 MG CAP PO SCH (20:37)
[2022-03-09] MEDS ORDERED: HumaLOG 300 UNITS/3 ML VIAL SC PRN ×2 (06:18)
[2022-03-09] MEDS: Levothyroxine Sodium 100 MCG TAB PO SCH (06:24)
[2022-03-09] MEDS: Aspirin 81 mg Enteric Coated Tablet PO SCH (08:50)
[2022-03-09] MEDS: Losartan 25 MG TAB PO SCH (08:50)
[2022-03-09] MEDS: Cyanocobalamin (Vitamin B-12) 1,000 MCG TAB PO SCH (08:50)
[2022-03-09] MEDS: Multivit, Therapeutic 1 TAB PO SCH (08:50)
[2022-03-09] MEDS: Ezetimibe 10 MG TAB PO SCH (08:51)
[2022-03-09] MEDS: Magnesium Oxide 250 MG TAB PO SCH (08:52)
[2022-03-09] MEDS: rOPINIRole HCl 2 MG TAB PO SCH (19:31)
[2022-03-09] MEDS: Atorvastatin Calcium 40 MG TAB PO SCH (19:33)
[2022-03-09] MEDS: Gabapentin 300 MG CAP PO SCH (19:34)
[2022-03-10] MEDS: Levothyroxine Sodium 100 MCG TAB PO SCH (06:29)
[2022-03-10 06:55] LABS: #Basophils 0.1 thou/uL (0.0-0.2); #Eosinphils 0.1 thou/uL (0.0-0.7); #Monocytes 0.7 thou/uL (0.11-0.59); #Neutrophils 3.4 thou/uL (1.40-6.50); %Basophils 0.9 % (0.0-1.0); %Eosinophils 2.1 % (0.0-10.0); %Lymphocytes 31.6 % (21.0-51.0); %Monocytes 11.7 % (0.0-10.0); %Neutrophils 53.7 % (42.0-75.0); Hemoglobin 15.8 g/dL (12.0-16.0); Mean Corpuscular HGB CONC 31.5 g/dL (32.0-36.0); Mean Corpuscular Hemoglobin 31.5 pg (27.0-31.0); Platelet Count 154 thou/uL (130-400); RBC Distribution Width 11.4 % (11.5-14.5); Red Blood Cell (RBC) Count 5.02 mill/uL (4.20-5.40); White Blood Cell (WBC) Count 6.3 thou/uL (4.8-10.8)
[2022-03-10 07:06] LABS: ALT (SGPT) 31 U/L (8-55); AST (SGOT) 23 U/L (5-34); Albumin 3.9 g/dL (3.4-4.8); Alkaline Phosphatase 73 U/L (40-110); Anion Gap 15 mmol/L (10-20); BUN (Urea Nitrogen) 19 mg/dL (9.8-20.1); Calc. Creatinine Clearance 89 mL/min (70-130); Calcium 9.9 mg/dL (7.8-10.44); Carbon Dioxide 24 mmol/L (23-31); Chloride 107 mmol/L (98-107); Estimated GFR 75; Globulin 3.2 g/dL (2.4-3.5); Glucose 119 mg/dL (80-115); Potassium 5.3 mmol/L (3.5-5.1); Protein, Total 7.1 g/dL (5.8-8.1); Sodium 141 mmol/L (136-145)
[2022-03-10] MEDS: Ezetimibe 10 MG TAB PO SCH (08:49)
[2022-03-10] MEDS: Losartan 25 MG TAB PO SCH (08:49)
[2022-03-10] MEDS: Cyanocobalamin (Vitamin B-12) 1,000 MCG TAB PO SCH (08:50)
[2022-03-10] MEDS: Aspirin 81 mg Enteric Coated Tablet PO SCH (08:50)
[2022-03-10] MEDS: Multivit, Therapeutic 1 TAB PO SCH (08:50)
[2022-03-10] MEDS: Magnesium Oxide 250 MG TAB PO SCH (08:53)
[2022-03-10] MEDS ORDERED: Enoxaparin Sodium 40 MG/0.4 ML SYRINGE SC SCH (11:15)
[2022-03-10 11:47] LABS: Anion Gap 13 mmol/L (10-20); BUN (Urea Nitrogen) 18 mg/dL (9.8-20.1); Calc. Creatinine Clearance 92 mL/min (70-130); Calcium 9.6 mg/dL (7.8-10.44); Carbon Dioxide 26 mmol/L (23-31); Chloride 102 mmol/L (98-107); Estimated GFR 78; Glucose 140 mg/dL (80-115); Potassium 4.7 mmol/L (3.5-5.1); Sodium 136 mmol/L (136-145)
[2022-03-10] MEDS: rOPINIRole HCl 2 MG TAB PO SCH (18:19)
[2022-03-10] MEDS: Gabapentin 300 MG CAP PO SCH (18:19)
[2022-03-10] MEDS: Atorvastatin Calcium 40 MG TAB PO SCH (20:57)
[2022-03-11] MEDS: Levothyroxine Sodium 100 MCG TAB PO SCH (05:51)
[2022-03-11] MEDS: Aspirin 81 mg Enteric Coated Tablet PO SCH (07:59)
[2022-03-11] MEDS: Ezetimibe 10 MG TAB PO SCH (08:00)
[2022-03-11] MEDS: Multivit, Therapeutic 1 TAB PO SCH (08:00)
[2022-03-11] MEDS: Cyanocobalamin (Vitamin B-12) 1,000 MCG TAB PO SCH (08:00)
[2022-03-11] MEDS: Losartan 25 MG TAB PO SCH (08:00)
[2022-03-11] MEDS: Magnesium Oxide 250 MG TAB PO SCH (08:00)
[2022-03-11] MEDS ORDERED: Enoxaparin Sodium 40 MG/0.4 ML SYRINGE SC SCH (09:00)
[2022-03-11 12:01] VITALS: BP 130/80; TEMP 98.9
== END 2022-03-11 12:57 | disposition home or self-care (01) | DRG 149 ==
LOC: ERS 14:24 → NEURO 17:04 → OBSVTOIN 03-08 10:17
PROVIDERS: ADMIT Family Medicine; ATTEND Family Medicine
DX: H81.10 Benign paroxysmal vertigo, unspecified ear (principal); Z20.822 Contact with and (suspected) exposure to COVID-19; I10 Essential (primary) hypertension; E78.5 Hyperlipidemia, unspecified; E11.9 Type 2 diabetes mellitus without complications; E03.9 Hypothyroidism, unspecified; G25.81 Restless legs syndrome; F32.A Depression, unspecified; G47.33 Obstructive sleep apnea (adult) (pediatric); K21.9 Gastro-esophageal reflux disease without esophagitis; R00.1 Bradycardia, unspecified; Z79.899 Other long term (current) drug therapy; Z79.890 Hormone replacement therapy; Z95.0 Presence of cardiac pacemaker; Z79.4 Long term (current) use of insulin; Z98.890 Other specified postprocedural states
CPT/HCPCS: 36415; 36416; 70450; 70496; 70498; 70551; 80053; 80061; 83036; 84443; 84484; 85025; 93005; 93306; 93880; 96360; 96361; G0378; J1650; Q0169; U0003; U0005

== ENCOUNTER 2022-03-18 14:32 | Outpatient (CLI) | payer MEDICARE | END 2022-03-18 14:33 | disposition home or self-care (01) | LOC: BICMAMMO 14:32 | PROVIDERS: ATTEND Family Medicine | DX: Z12.31 Encounter for screening mammogram for malignant neoplasm of breast (principal); Z80.3 Family history of malignant neoplasm of breast; Z91.89 Other specified personal risk factors, not elsewhere classified | CPT/HCPCS: 77063; 77067 ==

== ENCOUNTER 2022-03-20 09:50 | Outpatient (CLI) | payer MEDICARE | END 2022-03-20 09:51 | disposition home or self-care (01) | LOC: BICMAMMO 09:50 | PROVIDERS: ATTEND Family Medicine | DX: N63.15 Unspecified lump in the right breast, overlapping quadrants (principal) | CPT/HCPCS: 19083; 76642; 77065; G0279 ==

== ENCOUNTER 2022-04-15 17:00 | Outpatient (CLI) | payer MEDICARE ==
[2022-04-15 18:07] LABS: #Monocytes 0.7 10x3/uL (0.0-1.1); #Neutrophils 4.4 10x3/uL (1.5-8.4); %Basophils 0.4 % (0.0-2.0); %Eosinophils 0.6 % (0.0-6.0); %Lymphocytes 23.7 % (18.0-47.0); %Monocytes 9.8 % (0.0-10.0); %Neutrophils 65.2 % (40.0-75.0); Hemoglobin 13.8 g/dL (12.0-15.5); Mean Corpuscular Hemoglobin 31.7 pg (27.0-33.0); Mean Corpuscular Volume 95.9 fl (81.6-98.3); Mean Platelet Volume 11.6 fl (7.4-10.4); Platelet Count 181 10x3/uL (150-450); Red Blood Cell (RBC) Count 4.36 10x6/uL (3.90-5.03); White Blood Cell (WBC) Count 6.8 10x3/uL (3.5-10.5)
[2022-04-15 18:28] LABS: Anion Gap 17 mmol/L (10-20); BUN (Urea Nitrogen) 22 mg/dL (9.8-20.1); Calc. Creatinine Clearance 0 mL/min (70-130); Calcium 9.7 mg/dL (7.8-10.44); Carbon Dioxide 27 mmol/L (23-31); Chloride 103 mmol/L (98-107); Estimated GFR 47; Glucose 222 mg/dL (80-115); Potassium 4.1 mmol/L (3.5-5.1); Sodium 143 mmol/L (136-145)
== END 2022-04-15 17:01 | disposition home or self-care (01) ==
LOC: LABBT 17:00
PROVIDERS: ATTEND Surgery
DX: Z01.812 Encounter for preprocedural laboratory examination (principal); Z20.822 Contact with and (suspected) exposure to COVID-19
CPT/HCPCS: 80048; 85025; 87811

== ENCOUNTER 2022-04-18 06:33 | Day surgery (SDC) | payer MEDICARE ==
[2022-04-16 12:29] VITALS: BMI 34.9
[2022-04-18] MEDS ORDERED: ePHEDrine 50 MG/ML VIAL ONE (11:39)
[2022-04-18] MEDS ORDERED: PROPOFOL 200 MG/20 ML VIAL ONE (11:39)
[2022-04-18] MEDS ORDERED: Ondansetron PF 4 MG/2 ML Vial ONE (11:39)
[2022-04-18] MEDS ORDERED: Lidocaine 1% MPF 2 ML VIAL ONE (11:39)
== END 2022-04-18 14:56 | disposition home or self-care (01) ==
LOC: MAMMO 06:33
PROVIDERS: ATTEND Surgery
PROC: 0HBT0ZZ Excision of Right Breast, Open Approach (ICD-10-PCS; principal; 2022-04-18)
PROC: 07B50ZX Excision of Right Axillary Lymphatic, Open Approach, Diagnostic (ICD-10-PCS; 2022-04-18)
DX: C50.211 Malignant neoplasm of upper-inner quadrant of right female breast (principal); E78.00 Pure hypercholesterolemia, unspecified; I10 Essential (primary) hypertension; E07.9 Disorder of thyroid, unspecified; Z17.0 Estrogen receptor positive status [ER+]; Z79.890 Hormone replacement therapy; Z79.899 Other long term (current) drug therapy; Z95.0 Presence of cardiac pacemaker
CPT/HCPCS: 19281; 19301; 38525; 76098; 78195; A9541; 88307; 88342; J2405; J2704; J3490

== ENCOUNTER 2022-07-11 14:47 | Outpatient (CLI) | payer MEDICARE | END 2022-07-11 14:48 | disposition home or self-care (01) | LOC: BICMAMMO 14:47 | PROVIDERS: ATTEND Internal Medicine Hematology & Oncology | DX: Z13.820 Encounter for screening for osteoporosis (principal); C50.211 Malignant neoplasm of upper-inner quadrant of right female breast; T38.6X5A Adverse effect of antigonadotrophins, antiestrogens, antiandrogens, not elsewhere classified, initial encounter; M85.851 Other specified disorders of bone density and structure, right thigh; M85.852 Other specified disorders of bone density and structure, left thigh | CPT/HCPCS: 77080 ==

== ENCOUNTER 2023-03-18 08:45 | Outpatient (CLI) | payer MEDICARE | END 2023-03-18 08:46 | disposition home or self-care (01) | LOC: BICMAMMO 08:45 | PROVIDERS: ATTEND Surgery | DX: Z08 Encounter for follow-up examination after completed treatment for malignant neoplasm (principal); Z85.3 Personal history of malignant neoplasm of breast | CPT/HCPCS: 77066; G0279 ==

== ENCOUNTER 2023-04-23 14:55 | Emergency (ER) | payer OTHER, MEDICARE ==
[2023-04-23] MEDS ORDERED: Bacitracin 1 PK ONE (15:27)
[2023-04-23] MEDS ORDERED: Boostrix 0.5 ML (Tdap) VIAL (>/=7 yrs of age) ONE (15:27)
[2023-04-23] MEDS ORDERED: Acetaminophen 500 MG TAB ONE (15:27)
[2023-04-23] MEDS ORDERED: Lidocaine 1% w/Epinephrine 1:100K 20 ML VIAL ONE (15:27)
== END 2023-04-23 16:32 | disposition home or self-care (01) ==
LOC: ERS 14:55
DX: S01.81XA Laceration without foreign body of other part of head, initial encounter (principal); I10 Essential (primary) hypertension; E03.9 Hypothyroidism, unspecified; E11.9 Type 2 diabetes mellitus without complications; W01.0XXA Fall on same level from slipping, tripping and stumbling without subsequent striking against object, initial encounter; Z79.899 Other long term (current) drug therapy; Z79.84 Long term (current) use of oral hypoglycemic drugs
CPT/HCPCS: 12011; 70450; 90471; 90715; 93005

== ENCOUNTER 2023-05-03 11:27 | Emergency (ER) | payer MEDICARE | END 2023-05-03 11:55 | disposition home or self-care (01) | LOC: ERS 11:27 | DX: S01.81XD Laceration without foreign body of other part of head, subsequent encounter (principal); E03.9 Hypothyroidism, unspecified; I10 Essential (primary) hypertension; E11.9 Type 2 diabetes mellitus without complications; Z79.84 Long term (current) use of oral hypoglycemic drugs; Z79.899 Other long term (current) drug therapy; W18.30XD Fall on same level, unspecified, subsequent encounter ==

== ENCOUNTER 2023-06-03 08:11 | Emergency (ER) | payer MEDICARE ==
[2023-06-03 09:27] LABS: #Eosinphils 0.1 thou/uL (0.0-0.7); #Monocytes 0.8 thou/uL (0.11-0.59); #Neutrophils 5.3 thou/uL (1.40-6.50); %Basophils 0.3 % (0.0-1.0); %Eosinophils 1.7 % (0.0-10.0); %Lymphocytes 12.1 % (21.0-51.0); %Neutrophils 74.5 % (42.0-75.0); Hematocrit 41.7 % (36.0-47.0); Hemoglobin 13.6 g/dL (12.0-16.0); Mean Corpuscular HGB CONC 32.6 g/dL (32.0-36.0); Mean Corpuscular Hemoglobin 31.4 pg (27.0-31.0); Mean Corpuscular Volume 96.3 fl (78.0-98.0); Mean Platelet Volume 10.7 fL (7.4-10.4); Platelet Count 145 10x3/uL (130-400); RBC Distribution Width 11.9 % (11.5-14.5); Red Blood Cell (RBC) Count 4.33 mill/uL (4.20-5.40); White Blood Cell (WBC) Count 7.1 10x3/uL (4.8-10.8)
[2023-06-03 09:48] LABS: ALT (SGPT) 31 U/L (8-55); AST (SGOT) 25 U/L (5-34); Albumin 4.1 g/dL (3.4-4.8); Alkaline Phosphatase 59 U/L (40-110); Anion Gap 12 mmol/L (10-20); BUN (Urea Nitrogen) 14 mg/dL (9.8-20.1); Bilirubin, Total 0.7 mg/dL (0.2-1.2); Calc. Creatinine Clearance 0 mL/min (70-130); Calcium 9.4 mg/dL (7.8-10.44); Carbon Dioxide 28 mmol/L (23-31); Chloride 103 mmol/L (98-107); Estimated GFR 74; Globulin 2.4 g/dL (2.4-3.5); Glucose 153 mg/dL (80-115); Magnesium 1.5 mg/dL (1.6-2.6); Potassium 4.1 mmol/L (3.5-5.1); Protein, Total 6.5 g/dL (5.8-8.1); Sodium 139 mmol/L (136-145)
[2023-06-03 09:52] LABS: Troponin I Less than 0.010 ng/mL (< 0.028)
[2023-06-03 11:19] LABS: Bacteria/HPF None Seen HPF (None Seen); Bilirubin Negative (Negative); Blood, Urine Negative (Negative); CAUTI Indications for Culture Alt mental st,lethar; Clarity Clear (Clear); Glucose, Urine (Dipstick) Normal (Negative); Ketone, Urine Negative (Negative); Leukocyte Negative Leu/uL (Negative); Nitrite Negative (Negative); Protein, Urine (Dipstick) Negative (Neg-Trace); RBC/HPF 0-3 HPF (0-3); Squamous Epithelial 0-3 HPF (0-3); Urobilinogen Normal mg/dL (Less than 2); WBC/HPF 0-3 HPF (0-3)
[2023-06-03 11:29] LABS: Urine Culture Reflex No No
[2023-06-03 11:48] LABS: Free T4 (Free Thyroxine) 1.35 ng/dL (0.70-1.48)
== END 2023-06-03 12:24 | disposition home or self-care (01) ==
LOC: ERS 08:11
DX: R42 Dizziness and giddiness (principal); I10 Essential (primary) hypertension; E03.9 Hypothyroidism, unspecified; E11.9 Type 2 diabetes mellitus without complications; Z79.899 Other long term (current) drug therapy; Z79.84 Long term (current) use of oral hypoglycemic drugs
CPT/HCPCS: 71045; 80053; 81001; 83735; 83880; 84439; 84443; 84481; 84484; 85025; 93005; 96360

== ENCOUNTER 2023-07-13 10:28 | Outpatient (CLI) | payer MEDICARE | END 2023-07-13 10:29 | disposition home or self-care (01) | LOC: BICMAMMO 10:28 | PROVIDERS: ATTEND Internal Medicine Hematology & Oncology | DX: M85.851 Other specified disorders of bone density and structure, right thigh (principal); M85.852 Other specified disorders of bone density and structure, left thigh; C50.211 Malignant neoplasm of upper-inner quadrant of right female breast; T38.6X5D Adverse effect of antigonadotrophins, antiestrogens, antiandrogens, not elsewhere classified, subsequent encounter | CPT/HCPCS: 77080 ==

== ENCOUNTER 2023-07-13 11:02 | Outpatient (CLI) | payer MEDICARE | END 2023-07-13 11:03 | disposition home or self-care (01) | LOC: BICRAD 11:02 | PROVIDERS: ATTEND Student in an Organized Health Care Education/Training Program | DX: M79.644 Pain in right finger(s) (principal); M79.645 Pain in left finger(s); M77.8 Other enthesopathies, not elsewhere classified; R22.32 Localized swelling, mass and lump, left upper limb ==

== ENCOUNTER 2023-08-18 14:27 | Outpatient (CLI) | payer MEDICARE | END 2023-08-18 14:28 | disposition home or self-care (01) | LOC: BICRAD 14:27 | PROVIDERS: ATTEND Student in an Organized Health Care Education/Training Program | DX: M46.1 Sacroiliitis, not elsewhere classified (principal); M70.62 Trochanteric bursitis, left hip; M70.61 Trochanteric bursitis, right hip | CPT/HCPCS: 72202; 73523 ==

== ENCOUNTER 2024-07-18 08:01 | Outpatient (CLI) | payer MEDICARE | END 2024-07-18 08:02 | disposition home or self-care (01) | LOC: MRI 08:01 | DX: S83.8X1A Sprain of other specified parts of right knee, initial encounter (principal); M94.8X6 Other specified disorders of cartilage, lower leg | CPT/HCPCS: 71046 ==

== ENCOUNTER 2024-08-03 08:25 | Outpatient (CLI) | payer MEDICARE ==
[2024-08-03] MEDS ORDERED: Magnevist 469MG/ML 20 ML VIAL ONE (15:17)
== END 2024-08-03 08:26 | disposition home or self-care (01) ==
LOC: MRI 08:25
PROVIDERS: ATTEND Nurse Practitioner Family
DX: R47.1 Dysarthria and anarthria (principal); R90.89 Other abnormal findings on diagnostic imaging of central nervous system
CPT/HCPCS: 70553; 76376

== ENCOUNTER 2024-09-30 08:04 | Outpatient (CLI) | payer MEDICARE ==
[2024-09-30] MEDS ORDERED: Magnevist 469MG/ML 20 ML VIAL ONE (15:05)
== END 2024-09-30 08:05 | disposition home or self-care (01) ==
LOC: MRI 08:04
PROVIDERS: ATTEND Nurse Practitioner Family
DX: I63.9 Cerebral infarction, unspecified (principal); G93.9 Disorder of brain, unspecified; Z95.0 Presence of cardiac pacemaker
CPT/HCPCS: 70553; 71046; 76376

== ENCOUNTER 2025-04-04 07:02 | Outpatient (CLI) | payer MEDICARE ==
[2025-04-04 08:32] LABS: Estimated GFR - POC 68.0
[2025-04-04] MEDS ORDERED: Iopamidol-370 76% 500 ML MDV (1 ML CHARGE) ONE (10:07)
== END 2025-04-04 07:03 | disposition home or self-care (01) ==
LOC: MRI 07:02
PROVIDERS: ATTEND Psychiatry & Neurology Neurology
DX: I63.89 Other cerebral infarction (principal); M47.812 Spondylosis without myelopathy or radiculopathy, cervical region
CPT/HCPCS: 36415; 70496; 70498; 70553; 71046; 76014; 76376; 82565; Q9967

== ENCOUNTER 2025-05-23 16:07 | Outpatient (CLI) | payer MEDICARE ==
[2025-05-23 16:40] LABS: #Basophils 0.03 10x3/uL (0.0-0.2); #Eosinophils 0.11 10x3/uL (0.0-0.7); #Monocytes 0.67 10x3/uL (0.11-0.59); #Neutrophils 3.97 10x3/uL (1.40-6.50); %Basophils 0.5 % (0.0-1.0); %Eosinophils 1.7 % (0.0-10.0); %Lymphocytes 24.0 % (21.0-51.0); %Monocytes 10.6 % (0.0-10.0); %Neutrophils 63.0 % (42.0-75.0); Hematocrit 40.9 % (36.0-47.0); Hemoglobin 13.1 g/dL (12.0-16.0); Mean Corpuscular Hemoglobin 30.6 pg (27.0-31.0); Mean Corpuscular Volume 95.6 fL (78.0-98.0); Platelet Count 186 10x3/uL (130-400); Red Blood Cell (RBC) Count 4.28 mill/uL (4.20-5.40); White Blood Cell (WBC) Count 6.30 10x3/uL (4.8-10.8)
[2025-05-23 17:20] LABS: Anion Gap 13 mmol/L (10-20); BUN (Urea Nitrogen) 16 mg/dL (9.8-20.1); Calc. Creatinine Clearance 0 mL/min (70-130); Calcium 9.7 mg/dL (7.8-10.44); Carbon Dioxide 27 mmol/L (23-31); Chloride 106 mmol/L (98-107); Glucose 150 mg/dL (83-110); Potassium 4.9 mmol/L (3.5-5.1); Sodium 141 mmol/L (136-145)
== END 2025-05-23 16:08 | disposition home or self-care (01) ==
LOC: LABBT 16:07
PROVIDERS: ATTEND Internal Medicine Cardiovascular Disease
DX: I63.9 Cerebral infarction, unspecified (principal)
CPT/HCPCS: 80048; 85025

== ENCOUNTER 2025-05-25 07:06 | Day surgery (SDC) | payer MEDICARE ==
[2025-05-23 16:12] VITALS: BMI 29.7
== END 2025-05-25 10:01 | disposition home or self-care (01) ==
LOC: SDC 07:06
PROVIDERS: ATTEND Internal Medicine Cardiovascular Disease
DX: I63.9 Cerebral infarction, unspecified (principal); Z53.9 Procedure and treatment not carried out, unspecified reason; I47.20 Ventricular tachycardia, unspecified; R06.09 Other forms of dyspnea; E78.00 Pure hypercholesterolemia, unspecified; Z95.0 Presence of cardiac pacemaker; I10 Essential (primary) hypertension; E03.9 Hypothyroidism, unspecified; G47.33 Obstructive sleep apnea (adult) (pediatric); I44.7 Left bundle-branch block, unspecified; R73.9 Hyperglycemia, unspecified; I51.89 Other ill-defined heart diseases; C50.911 Malignant neoplasm of unspecified site of right female breast; G25.0 Essential tremor
CPT/HCPCS: 93005; 93010

== ENCOUNTER 2025-07-17 09:08 | Outpatient (CLI) | payer MEDICARE ==
[2025-07-17 10:23] LABS: #Basophils Less than 0.03 10x3/uL (0.0-0.2); #Eosinophils 0.09 10x3/uL (0.0-0.7); #Monocytes 0.64 10x3/uL (0.11-0.59); #Neutrophils 4.01 10x3/uL (1.40-6.50); %Basophils 0.3 % (0.0-1.0); %Eosinophils 1.4 % (0.0-10.0); %Lymphocytes 23.6 % (21.0-51.0); %Monocytes 10.3 % (0.0-10.0); %Neutrophils 64.2 % (42.0-75.0); Hematocrit 40.7 % (36.0-47.0); Hemoglobin 12.7 g/dL (12.0-16.0); Mean Corpuscular Hemoglobin 30.0 pg (27.0-31.0); Mean Corpuscular Volume 96.2 fL (78.0-98.0); Platelet Count 133 10x3/uL (130-400); Red Blood Cell (RBC) Count 4.23 mill/uL (4.20-5.40); White Blood Cell (WBC) Count 6.24 10x3/uL (4.8-10.8)
[2025-07-17 10:45] LABS: Anion Gap 12 mmol/L (10-20); BUN (Urea Nitrogen) 15 mg/dL (9.8-20.1); Calc. Creatinine Clearance 0 mL/min (70-130); Calcium 9.4 mg/dL (7.8-10.44); Carbon Dioxide 26 mmol/L (23-31); Chloride 107 mmol/L (98-107); Glucose 134 mg/dL (83-110); Potassium 5.0 mmol/L (3.5-5.1); Sodium 140 mmol/L (136-145)
== END 2025-07-17 09:09 | disposition home or self-care (01) ==
LOC: LABBT 09:08
PROVIDERS: ATTEND Internal Medicine Cardiovascular Disease
DX: Z01.818 Encounter for other preprocedural examination (principal); I63.9 Cerebral infarction, unspecified
CPT/HCPCS: 80048; 85025